=== PATIENT | male | born 1970 | race African-American/Black ===

== ENCOUNTER 2018-06-20 14:44 | Emergency (ER) | payer OTHER ==
[~2018-06-20] VITALS: Ht 175.3 cm; Wt 96.2 kg
[2018-06-20 15:22] LABS: URINE BILIRUBIN NEGATIVE (Negative); URINE BLOOD NEGATIVE (Negative); URINE CLARITY CLEAR; URINE COLOR YELLOW; URINE GLUCOSE-RANDOM* NEGATIVE (Negative); URINE KETONES NEGATIVE (Negative); URINE LEUKOCYTES-REFLEX NEGATIVE (Negative); URINE NITRITE-REFLEX NEGATIVE (Negative); URINE PROTEIN (DIPSTICK) NEGATIVE (Negative); URINE SPECIFIC GRAVITY 1.015 (1.005-1.035); URINE UROBILINOGEN 0.2 E.U./dl (0.2-1.0)
[2018-06-20 15:23] LABS: ABSOLUTE NEUTROPHILS 4.2 thou/uL (1.4-8.2); BASOPHILS 0.3 % (0.0-2.0); HEMATOCRIT 44.3 % (42.0-52.0); HEMOGLOBIN 14.9 gm/dL (14.0-18.0); LYMPHOCYTES 6.9 % (24.0-44.0); MCH 31.1 pg (26.0-34.0); MCHC 33.6 g/dL (28.0-37.0); MCV 92.5 fL (80.0-100.0); MONOCYTES 7.2 % (1.0-8.0); PLATELET COUNT 187 thou/uL (150-400); POLYS 85.6 % (36.0-66.0); RBC 4.79 mil/uL (4.50-6.00); RDW 12.3 % (10.5-14.5); WBC 4.9 thou/uL (4.0-11.0)
[2018-06-20 15:33] LABS: CALCIUM 9.6 mg/dL (8.5-10.1); POTASSIUM 3.6 mmol/L (3.5-5.1)
[2018-06-20 15:39] LABS: ALBUMIN 3.8 g/dL (3.4-5.0); TOTAL BILIRUBIN 0.8 mg/dL (<0.1-1.0); TOTAL PROTEIN 7.6 g/dL (6.4-8.2)
[2018-06-20] MEDS ORDERED: CIPRO500 MG PO (16:51)
[2018-06-20] MEDS ORDERED: FLAGYL500 M1 PO (16:51)
[2018-06-20 19:15] VITALS: BP 119/86
== END 2018-06-20 19:16 | disposition home or self-care (01) ==
LOC: ER 14:44
PROVIDERS: Physician Assistant
DX: K52.9 Noninfective gastroenteritis and colitis, unspecified (principal)